=== PATIENT | male | born 2000 | race Caucasian/White ===

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

== ENCOUNTER → 2023-07-23 | Outpatient (CLI) | payer OTHER ==
[~2023-07-23] MED LIST changes: +MEDI-MECLIZINE25 MG PO; +ZOFRAN ODT4 MG SL
== END | disposition home or self-care (01) ==
LOC: CT 00:13
PROVIDERS: ATTEND Specialist
DX: M27.40 Unspecified cyst of jaw (principal); J34.2 Deviated nasal septum; R09.81 Nasal congestion